=== PATIENT | female | born 1960 | race Two or more races ===

== ENCOUNTER 2018-08-24 15:44 | Outpatient (CLI) | payer OTHER ==
[~2018-08-24 15:44] MED LIST: SYNTHROID112 MCG PO
== END 2018-08-24 15:53 | disposition home or self-care (01) ==
LOC: RAD 501 15:44
DX: M19.041 Primary osteoarthritis, right hand (principal); M54.2 Cervicalgia

== ENCOUNTER 2019-01-26 09:53 | Emergency (ER) | payer OTHER ==
[~2019-01-26] VITALS: Ht 162.6 cm; Wt 54.4 kg
== END 2019-01-26 14:05 | disposition home or self-care (01) ==
LOC: ER 09:53
DX: S30.0XXA Contusion of lower back and pelvis, initial encounter (principal); W18.39XA Other fall on same level, initial encounter; Y93.89 Activity, other specified; Y92.018 Other place in single-family (private) house as the place of occurrence of the external cause; Y99.8 Other external cause status; G89.11 Acute pain due to trauma; M54.5 Low back pain

== ENCOUNTER → 2019-02-09 | Outpatient (CLI) | payer OTHER | END | disposition home or self-care (01) | LOC: NUCLEAR 09:00 | DX: S32.89XA Fracture of other parts of pelvis, initial encounter for closed fracture (principal); M89.00 Algoneurodystrophy, unspecified site; M81.0 Age-related osteoporosis without current pathological fracture | CPT/HCPCS: 78306; A9503 ==

== ENCOUNTER 2021-09-25 20:53 | Emergency (ER) | payer OTHER ==
[~2021-09-25] VITALS: Ht 162.6 cm; Wt 54.4 kg
[2021-09-26] MEDS ORDERED: DOLOGESIC-DF 51 EACH PO (04:30)
== END 2021-09-26 04:36 ==
LOC: ER 20:53
DX: B34.9 Viral infection, unspecified (principal); R53.81 Other malaise; R51.9 Headache, unspecified; E03.9 Hypothyroidism, unspecified; Z20.822 Contact with and (suspected) exposure to COVID-19